=== PATIENT | male | born 1960 | race Caucasian/White ===

== ENCOUNTER 2019-03-29 17:06 | Emergency (ER) | payer OTHER ==
--- NOTE | 2019-03-29 19:14 | ED Physician Documentation ---
PD HPI LOWER EXT INJURY - Stated complaint Stated Complaint: RT LEG PX - Chief complaint Chief Complaint: Ext Problem - History obtained from History obtained from: Patient - History of Present Illness PD HPI LOW EXT INJURY LOCATION: Right (58-year-old gentleman with history of DVT PE, on Eliquis. Flu a couple of weeks ago, and just prior to that flight hit his knee on concrete and has persistent tightness and pain in the knee and calf.) Review of Systems Constitutional: reports: Reviewed and negative Cardiac: reports: Reviewed and negative Respiratory: reports: Reviewed and negative PD PAST MEDICAL HISTORY - Allergies Allergies/Adverse Reactions: Allergies Allergy/AdvReac Type Severity Reaction Status Date / Time No Known Drug Allergies Allergy Verified 03/29/19 17:26 PD ED PE NORMAL - Vitals Vital signs reviewed: Yes - General General: Alert and oriented X 3, No acute distress - Extremities Extremities: Other (There is a tiny effusion of the right knee, full range of motion and no bony tenderness. Mild calf tenderness without asymmetry.) - Neuro Neuro: Alert and oriented X 3, Normal speech Results - Vitals Vitals: Vital Signs - 24 hr 03/29/19 17:21 Temperature 36.9 C Heart Rate 73 Respiratory 16 Rate Blood Pressure 141/92 H O2 Saturation 96 Oxygen O2 Source Room air - Rads (name of study) Right lower extremity DVT sonogram Radiology: EMP read contemporaneously (No evidence of DVT) PD MEDICAL DECISION MAKING - ED course ED course: 58-year-old gentleman with history of DVT presents with concern for same, has a tiny effusion no bony tenderness and no limited range of motion. No evidence of DVT on ultrasound. Departure - Departure Disposition: 01 Home, Self Care Clinical Impression: Right leg pain Contusion of right knee Qualifiers: Encounter type: initial encounter Qualified Code(s): S80.01XA - Contusion of right knee, initial encounter Condition: Good Record reviewed to determine appropriate education?: Yes Instructions: ED Contusion Lower Ext Comments: No reason that he cannot do physical therapy tomorrow, return for new or worsening symptoms, follow-up with your doctor as needed for persistent issues.
[2019-03-29 19:22] VITALS: BP 144/96
--- NOTE | 2019-03-29 19:31 | Ultrasound Report ---
Reason: Leg pain Procedure Date: 03/29/2019 Accession Number: [id number] / [id number] Procedure: US - Duplex Ext Veins Right CPT Code: Final Report FULL RESULT: EXAM: RIGHT LOWER EXTREMITY VENOUS ULTRASOUND EXAM DATE: 03/29/2019 07:00 PM. CLINICAL HISTORY: Leg pain. Shortness of breath. On blood thinners. History of long flight and history of trauma to right knee 3 weeks ago. COMPARISON: None. TECHNIQUE: Real-time sonographic vascular imaging was performed by the lead net software developer through the lower extremity utilizing both color-flow and Doppler spectral analysis. Multiple tax representative static images were saved for review. FINDINGS: Common Femoral Vein (CFV): Normal. CFV-GSV Junction: Normal. Profunda Femoral Vein (PFV): Normal. Femoral Vein (FV) Prox: Normal. Femoral Vein (FV) Mid: Normal. Femoral Vein (FV) Dist: Normal. Popliteal Vein: Normal. Posterior Tibial Veins: Not well seen. Peroneal Veins: Not well seen. IMPRESSION: No evidence for deep venous thrombosis. RADIA
== END 2019-03-29 19:26 | disposition home or self-care (01) ==
LOC: ED 17:06
DX: M79.661 Pain in right lower leg (principal); S80.01XA Contusion of right knee, initial encounter; W22.8XXA Striking against or struck by other objects, initial encounter
CPT/HCPCS: 99283; 99284

== ENCOUNTER 2019-10-13 12:43 | Outpatient (CLI) | payer OTHER ==
--- NOTE | 2019-10-15 09:03 | MRI Report ---
PROCEDURE: Knee RT W/O INDICATIONS: RIGHT KNEE PAIN TECHNIQUE: Noncontrast sagittal PD fast spin echo and T2 fast spin echo with fat saturation, sagittal 3-D gradie nt sequence with fat saturation; coronal T1 spin echo and PD fast spin echo with fat saturation, and axial PD fast spin echo with fat saturation through the knee. COMPARISON: None. FINDINGS: Image quality: Excellent. Menisci: Macerated medial tear involving the posterior horn and body with partial extrusion. Marked truncation of the lateral meniscal body, with intrasubstance signal change in keeping with tea r with radial component. Cruciate ligaments: Anterior cruciate ligament appears mildly thickened, with intrasubstance T2 hyperintense appearance r aising the possibility of early mucoid degeneration, although largely intact. Posterior cruciate ligament appears intact. Medial structures: The medial collateral ligament appears intact. The semimembranosus tendon appears intact. Visualized portions of the pes anserinus tendons appear normal. No abnormal bursal fluid. Lateral structures: There is mild thickening and internal signal change of the proximal lateral collateral ligament, whic h is technically age indeterminate. Biceps femoris tendon appears intact. Iliotibial band within norm al limits. Popliteus tendon within normal limits. Anterior structures: Mild patellar tendinopathy, with prepatellar and superficial infrapatellar edema. The quadriceps tendon appears intact. Medial and lateral patellofemoral ligaments appear grossly intact. Patellar alignment is normal. Hoffa's fat pad unremarkable. Bones and cartilage: No bone marrow contusions or fractures. Prominent fat signal intensity is seen within the suprapatell ar recess adjacent to the superior pole of the patella for example image 14/501, measuring 2.5 x 1.3 cm raising the possibility of intra-articular lipoma or atypical lipoma arborescens. Within the medial compartment, cartilage appears intact Within the lateral compartment, full-thickness central tibial cartilage loss. The femoral cartilage a ppears grossly intact. Within the patellofemoral compartment, diffuse surface fraying of the patellar cartilage. The femoral trochlear cartilage appears intact Joint space: Small joint effusion. Cole's cyst measuring 6 cm in the cephalocaudad dimension. No specific evidence of loose body identi fied. IMPRESSION: Macerated medial tear involving the posterior horn and body with partial extrusion Lateral meniscal tear involving the body. Possible early mucoid degeneration of the ACL. Please correlate to exam findings Prominent masslike fat signal intensity within the suprapatellar recess, which could be incidental al though intra-articular lipoma or much less likely atypical lipoma arborescens in the differential. Degenerative joint disease most pronounced within the lateral compartment. Large Cole's cyst Mild patellar tendinopathy with adjacent fluid and edema. Reviewed by: Mane Headley MD on 10/15/2019 9:01 AM PDT Approved by: Mane Headley MD on 10/15/2019 9:01 AM PDT Station ID: [id number]
== END 2019-10-13 12:44 | disposition home or self-care (01) ==
LOC: DI 12:43
PROVIDERS: ATTEND Family Medicine
DX: S83.241A Other tear of medial meniscus, current injury, right knee, initial encounter (principal); S83.281A Other tear of lateral meniscus, current injury, right knee, initial encounter; M17.11 Unilateral primary osteoarthritis, right knee; M71.21 Synovial cyst of popliteal space [Baker], right knee; M67.961 Unspecified disorder of synovium and tendon, right lower leg

== ENCOUNTER 2020-02-04 12:39 | Outpatient (CLI) | payer OTHER ==
--- NOTE | 2020-02-18 09:56 | MRI Report ---
PROCEDURE: Lumbar Spine W/O INDICATIONS: LOW BACK PAIN TECHNIQUE: Noncontrast sagittal T1 spin echo and T2 fast echo, sagittal STIR, axial T1 and T2 fast spin echo thr ough the lumbar spine. In cases with scoliosis, additional coronal T2 fast spin echo may be performe d. COMPARISON: None. FINDINGS: Image quality: Excellent. Alignment and Curvature: No plain films are available for comparison. Thus, for numbering purposes, 5 lumbar type vertebral bodies will be presumed for the current report. This should be confirmed with plain film correlation prior to any lumbar spinal intervention. There is loss of normal lumbar lordo sis. There is mild, grade 1 retrolisthesis of L2 on L3, L3 on L4, L4 on L5, and L5 on S1. Bone Marrow: Marrow is of normal overall signal. No acute vertebral body compression fractures. Th ere is moderate reactive signal within the endplates adjacent to the L3-L4, L4-L5, and L5-S1 interver tebral discs. Mild reactive signal within the end plates adjacent to the T11-T12, T12-L1, and L1-L2 i ntervertebral discs. Spinal Cord: Conus medullaris terminates at the lower T12 level. Visualized cord demonstrates darren l signal and size. Paraspinous Soft Tissues: No paravertebral masses. T12-L1: Moderate disc desiccation. Mild disc height loss. Mild diffuse disc bulge. Mild bilateral fa cet hypertrophy. Mild canal stenosis. Mild bilateral foraminal stenosis. L1-L2: Moderate disc height loss and desiccation. Mild diffuse disc bulge. Mild facet and ligament flavum hypertrophy. Mild epidural lipomatosis. Mild canal stenosis. Mild bilateral foraminal stenosi s. L2-L3: Severe disc height loss and desiccation. Mild diffuse disc bulge. Mild facet and ligament f lavum hypertrophy. Mild epidural lipomatosis. Mild canal stenosis. Mild bilateral foraminal stenosis. L3-L4: Moderate disc height loss and desiccation. Mild diffuse disc bulge. Mild facet and ligament flavum hypertrophy. Mild epidural lipomatosis. Mild canal stenosis. Moderate subarticular foraminal s tenosis bilaterally. L4-L5: Moderate disc height loss and desiccation. Mild diffuse disc bulge. Mild facet and ligament flavum hypertrophy. Mild epidural lipomatosis. Mild canal stenosis. Moderate left and severe right fo raminal stenosis. Right L4 nerve root compression. L5-S1: Moderate disc height loss and desiccation. Mild diffuse disc bulge. Mild facet and ligament flavum hypertrophy. Mild canal stenosis. Severe right and moderate left subarticular foraminal stenos is. Right L5 nerve root compression. IMPRESSION: 1. Multilevel degenerative disc and facet disease, in addition to epidural lipomatosis and ligamentum flavum hypertrophy. 2. Mild multilevel canal stenoses. 3. Multilevel foraminal stenoses, worst at L4-L5 and L5-S1 where there is associated intraforaminal n erve root compression. Recommend correlation with clinical symptoms to ascertain relevance of these f indings. Reviewed by: Imer Gregorio MD on 02/18/2020 9:55 AM PST Approved by: Imer Gregorio MD on 02/18/2020 9:55 AM PST Station ID: [id number]
== END 2020-02-04 12:40 | disposition home or self-care (01) ==
LOC: DI 12:39
PROVIDERS: ATTEND Family Medicine
DX: M51.37 Other intervertebral disc degeneration, lumbosacral region (principal); M48.07 Spinal stenosis, lumbosacral region
CPT/HCPCS: 72148

== ENCOUNTER 2021-04-23 15:21 | Outpatient (CLI) | payer OTHER ==
[2021-04-23 16:30] VITALS: BP 140/90
--- NOTE | 2021-04-23 16:30 | SLEEP CARE CONSULTATION ---
Information from patient questionnaire entered by Yary Jacob MA. I have reviewed and concur with the information entered by Yary Jacob MA. This document represents the service I personally performed and the decisions made by , Helene Correa ARNP. History of Present Illness Service Date and Time: 04/23/2021 1521 Reason for Visit: New patient (ONSET 2013, STUDY 3 YEARS AGO [place]), Previously diagnosed sleep apnea, sleep apnea on CPAP therapy Chief Complaint: reports: Insomnia, Unrefreshed sleep, Snoring, Fatigue, Frequent awakenings at night Date of Onset: 5 YEARS Usual bedtime: 10:00 - 1200 PM Time it takes to fall asleep: 1 - 2 HOUR Snores at night: Yes Observed to quit breathing while asleep: Yes Sleeps alone due to snoring: No Number of times waking at night: 2 Reasons for waking at night: reports: Snoring, Bathroom Toss, Turn, or Twitch while sleeping: Yes Recalls having dreams: Yes Usually gets out of bed at: 10 AM - 12 AM Feels refreshed in the morning: No Morning headache: Yes Sleepy or fatigued during the day: Yes Ever fallen asleep while driving: No Takes day naps: No Dreams during day naps: Yes Prior sleep studies: Yes Year and Where: 05-02-2018 at [facility] Type of Sleep Study: Home sleep study Additional HPI information: ALBERTO ROBERT was previously diagnosed to have mild, AHI 10.7, obstructive sleep apnea-hypopnea syndrome and comes in today to establish care for CPAP therapy. Patient last study done in 2018 in [place] at the [facility]. - Parasomnia Symptoms Ever been unable to move upon waking from sleep: No Walks in sleep: No Talks in sleep: Yes Ever acted out dreams in sleep: Yes Ever felt weak in the knees when startled or emotional: Yes Bothered by creepy, crawly, restless sensations in legs: No Problems with memory or concentration: Yes CPAP Compliance Data - Data Reviewed with Patient Average duration of nightly device use: 4 hours 53 minutes Compliance rate %: 58 Current pressure setting (cmH2O): 5-15 Average residual AHI: 2.5 Central apnea: 1.1 Obstructive apnea: 0.5 Compliance data discussion: He has been getting supplies on his own. He is using a ResCytoPherx machine. He is using a full face mask, size large, ResMed AirTouch F20. He does not have a backup mask at this time. He last changed his mask cushion 4 months ago. Subjective Patient concerns: reports: air blowing in eyes, condensation in mask/hose (sometimes in mask, not hose; no issues with this), dry mouth, nose, throat (sometimes). denies: aerophagia, mask discomfort (when needs a new mask), mask leak noise, nasal congestion, epistaxis, other Observed to snore while using device: No Current pressure setting perceived as: comfortable On therapy, patient: reports: other (He does not feel more rested or feels he sleep better with CPAP; but he knows it helps him sleep). denies: drowsiness while driving Initial [place] Sleepiness Scale score: 8 (2021) Past Medical History Past Medical History: reports: Hypertension, Stroke (Jan 2018), Arthritis (lower back, jacob knees, jacob hands), Gout, Hypothyroidism, Anxiety, Depression, Mood disorder (part of depression, PTSD), GERD (hiatal hernia repair, esophageal wrap/Tima) Social History The patient's occupation is a RE. Patient is and lives in [place]. Have you smoked in the past 12 months: No Quit date: 1994 Alcohol use: No Caffeine use: Yes Caffeine amount and frequency: 3 X DAILY Family History Family history of sleep disordered breathing: No Allergies and Home Medications Known drug allergies: No Drug allergies reviewed: Yes (Tetanus vaccine) Home medication list reviewed: Yes Allergy and home medication list: Eliquis Bupropion Synthroid Tamsulosin Meloxicam Lamotrigine Hydroxyzine Carvedilol Losartin Omeprazole Atorvastatin Eszopiclone Loratidine Trazadone Review of Systems Cardiovascular: reports: high blood pressure Respiratory: reports: shortness of breath Urinary: reports: frequency, urgency Neurological: reports: headaches, disorientation, gait or balance problems Psychiatric: reports: anxiety, depression, mood disorder Ear/Nose/Throat: reports: nasal congestion, sinus problems, injury to nose, tonsillectomy, wisdom teeth removed Endocrine: reports: thyroid disease, history of goiter, sluggishness, increased urination, unexplained weakness Musculoskeletal: reports: joint pain Physical Exam Vital signs obtained and entered by: Markos JACOB CMA AAMA Blood Pressure: 140/90 (right wrist) Heart Rate: 62 O2 Saturation: 95 (cloth mask) Height: 6 ft 4 in Weight: 238 lb (with clothes) Body Mass Index: 29.0 BMI Classification: Overweight Heart: regular rate and rhythm Lungs: clear bilaterally Impression and Plan 1. Obstructive Sleep Apnea-Hypopnea Syndrome, mild, with fair treatment compliance and good apnea control. Patient states he was sent over to get a sleep study completed because he is retiring from the and the [place] states he needs another sleep study to complete his separation. He has been buying his own supplies but he wants to wait until after the sleep study to be able to get more supplies. He has a new mask on his way right now. I encouraged him to change his mask as soon as he is able because he has been using the same one for 4 months. I will order the sleep study and the HST it would probably be adequate. I will follow up with patient in the office after the sleep study is completed. Patient's apnea severity and rationale for treatment to reduce apnea, improve sleep quality and reduce cardiovascular and cerebrovascular events was reviewed. I also reviewed the benefit of consistent device use of CPAP for hypertension, cerebrovascular disease, gastric reflux, and depression/anxiety. Patient was encouraged to lose weight for their overall health and to reduce apneas. * Continue auto CPAP pressure at 5-15 cmH2O * Polysomnography/HST to verify diagnosis * Notify me if snoring with mask or feeling that the pressure is too much or too little * Attempt to lose weight * Call this office if any problems using CPAP * Return for follow up after the sleep study is completed, or sooner if concerns arise Counseling Topics: Spare mask, Weight loss health impact Visit Type: In Office Time Spent with Patient (minutes): 31 Provider Statement: I spent 100% of the Face to Face Visit with the patient with greater than 50% spent counseling the patient and coordination of care.
== END 2021-04-23 15:22 | disposition home or self-care (01) ==
LOC: SC 15:21
PROVIDERS: ATTEND Nurse Practitioner Family
DX: G47.33 Obstructive sleep apnea (adult) (pediatric) (principal)
CPT/HCPCS: 99203; 99212

== ENCOUNTER 2021-04-29 14:33 | Outpatient (CLI) | payer OTHER | END 2021-04-29 14:34 | disposition home or self-care (01) | LOC: SC 14:33 | PROVIDERS: ATTEND Nurse Practitioner Family | DX: G47.33 Obstructive sleep apnea (adult) (pediatric) (principal); R09.02 Hypoxemia | CPT/HCPCS: 95806 ==

== ENCOUNTER 2021-05-14 15:25 | Outpatient (CLI) | payer OTHER ==
[2021-05-14 16:12] VITALS: BP 124/87
--- NOTE | 2021-05-14 16:12 | SLEEP CARE CONSULTATION ---
Information from patient questionnaire entered by Yary Jacob MA. I have reviewed and concur with the information entered by Yary Jacob MA. This document represents the service I personally performed and the decisions made by , Helene Correa ARNP. History of Present Illness Service Date and Time: 05/14/2021 1525 Initial [place] Sleepiness Scale score: 8 (2021) Current [place] Sleepiness Scale score: 13 Additional HPI information: ALBERTO ROBERT returns for follow up and results of the recently performed home sleep study. I explained the pathophysiology behind obstructive sleep apnea. We then spent quite a bit of time discussing different treatment options. For mild obstructive sleep apnea, surgery and oral appliance are alternatives to nasal CPAP therapy but in moderate or severe cases, nasal CPAP is the most effective and reliable treatment. I reviewed the impact of weight changes on sleep apnea and strongly recommended losing weight. Patient is to continue with the nasal CPAP therapy with nasal autoCPAP set at 5- 15 cmH20. Patient counseled not drink alcohol less than 4 hours before bedtime as it can increase snoring and apnea. Patient was cautioned about risks of drowsy driving until sleepiness symptoms resolve. Sleep Study - Results Prior sleep studies: Yes Year and Where: 05-02-2018 at [facility] Polysomnography/Home Sleep Study results: Physician Impression: The quality of the study is good. The length of the study is adequate (> 240 minutes). Please also see the tabulated and graphic data. 1. Obstructive Sleep Apnea-Hypopnea (ICD-10 G47.33), moderate, with an AHI of 22.8/hr and mary SaO2 of 82%. During the study, the patient had 237 apneas (237 obstructive, 0 central, 0 mixed) and 22 hypopneas. The longest episode lasted 108.5 seconds. The respiratory events occurred more frequently during supine sleep (supine AHI was 31.5 and non-supine, 16.73). 2. Hypoxemia (ICD-10 R09.02), mild, with the lowest oxygen saturation of 82 % and 245.1 minutes with SaO2 under 90%. Baseline oxygen saturation was normal (Average oxygen saturation was 91%). - Discussion Sleep Study discussion: Patient showed 100% compliance in last 14 days with 14/14 day use of his CPAP. He is using his machine an average of 9 hours 6 minutes. His pressure is set at 5-15 cmH2O and his average residual AHI is 2.5. He is using a ResMed AirFit F20 full face mask. Allergies and Home Medications Home medication list reviewed: Yes (no changes) Review of Systems Review of systems same as previous: Yes (no changes) Physical Exam Vital signs obtained and entered by: CLEMENCIA Jacob Blood Pressure: 124/87 Cuff size: wrist Heart Rate: 86 O2 Saturation: 96 Height: 6 ft 4 in Weight: 241 lb Body Mass Index: 29.3 BMI Classification: Overweight Impression and Plan 1. Obstructive Sleep Apnea-Hypopnea Syndrome, moderate, with lowest oxygen saturation of 82%. Patient will be continued on nasal autoCPAP therapy with pressure set at 5-15 cmH2O. Compliance guidelines also reviewed. Patient is very happy with getting update of his supplies. He is using a ResMed Airfit F20 mask. He will follow up again with us in 1 year or sooner if he has any issues. Patient was encouraged to lose weight for their overall health and to reduce apneas. 2. Hypoxemia, mild, with the lowest oxygen saturation of 82 % and 245.1 minutes with SaO2 under 90%. His baseline oxygen saturation was normal with an average oxygen saturation of 91%. * Continue auto CPAP pressure at 5-15 cmH2O * Notify me if snoring with mask or feeling that the pressure is too much or too little * Attempt to lose weight * Call this office if any problems using CPAP * Return for follow up in 1 year, or sooner if concerns arise Counseling Topics: Spare mask, Weight loss health impact Visit Type: In Office Time Spent with Patient (minutes): 16 Provider Statement: I spent 100% of the Face to Face Visit with the patient with greater than 50% spent counseling the patient and coordination of care.
== END 2021-05-14 15:26 | disposition home or self-care (01) ==
LOC: SC 15:25
PROVIDERS: ATTEND Nurse Practitioner Family
DX: G47.33 Obstructive sleep apnea (adult) (pediatric) (principal); R09.02 Hypoxemia
CPT/HCPCS: 99212

== ENCOUNTER 2022-04-23 12:59 | Outpatient (CLI) | payer OTHER ==
[2022-04-23 13:29] VITALS: BP 132/86
--- NOTE | 2022-04-23 13:29 | SLEEP CARE CONSULTATION ---
Information from patient questionnaire entered by Chioma Kessler. I have reviewed and concur with the information entered by Chioma Kessler. This document represents the service I personally performed and the decisions made by me, Helene Correa ARNP. History of Present Illness Service Date and Time: 04/23/2022 1259 Previous diagnosis: Moderate, Obstructive Sleep Apnea-Hypopnea Syndrome AHI: 22.8 Reason for follow up: other (11 MONTH F/U ) Equipment type: CPAP (RESMED NEED SD CARD PT NOT IN SYSTEM) Equipment obtained from: Other ([facility]; [facility] supplies) Mask style: Full face Mask brand: Resmed (Airfit F20) Backup mask available: Yes (old mask) Last cushion change: 9 month Prior sleep studies: Yes Year and Where: 05-02-2018 at [facility] Type of Sleep Study: Home sleep study HPI additional information: ALBERTO ROBERT was diagnosed to have moderate, AHI 22.8, obstructive sleep apnea- hypopnea syndrome and returned today for CPAP therapy 11 month follow-up. Sleep Study - Results Type of Sleep Study: Home sleep study Prior sleep studies: Yes Year and Where: 05-02-2018 at [facility] CPAP Compliance Data - Data Reviewed with Patient Average duration of nightly device use: 4 hours 2 mins Compliance rate %: 50 (30/30 days used) Current pressure setting (cmH2O): 5-15 Average residual AHI: 1.2 Central apnea: 0.4 Obstructive apnea: 0.2 Subjective Missed days of use due to: reports: mask issues (will take off when unable to tolerate air leaks from mask) Patient concerns: reports: mask discomfort (has not changed cushion in 9-10 months), air blowing in eyes, mask leak noise, dry mouth, nose, throat. denies: aerophagia, condensation in mask/hose, nasal congestion, epistaxis Observed to snore while using device: No Current pressure setting perceived as: comfortable On therapy, patient: reports: sleeping better, awakening more refreshed, being more awake and alert during the day, more rested overall. denies: drowsiness while driving Initial [place] Sleepiness Scale score: 8 (2021) Current [place] Sleepiness Scale score: 5 (04/23/22) Allergies and Home Medications Drug allergies reviewed: Yes (NKDA) Home medication list reviewed: Yes (new psych medications, not sure of names) Review of Systems Review of systems same as previous: Yes (no changes) Physical Exam Vital signs obtained and entered by: CHIOMA Del Valle MA Blood Pressure: 132/86 (LEFT ARM) Cuff size: regular Heart Rate: 50 O2 Saturation: 96 Height: 6 ft 4 in Weight: 244 lb 9.6 oz Body Mass Index: 29.7 BMI Classification: Overweight Impression and Plan 1. Obstructive Sleep Apnea-Hypopnea Syndrome, moderate, with fair treatment compliance and good apnea control. On CPAP therapy, the patient has better sleep quality and is more rested overall. Patient was told by the OR that he is due to update his machine. Thus, the CPAP will be updated. The new CPAPs also have a better humidity system which could assist control of patients dryness symptoms. He was also advised to change the mask cushion more often to reduce mask leaks. He voiced understanding. A DWO prescription will be made. Compliance guidelines for new device and follow up discussed. Patient's apnea severity and rationale for treatment to reduce apnea, improve sleep quality and reduce cardiovascular and cerebrovascular events was reviewed. I also reviewed the benefit of consistent device use of CPAP for hypertension, cerebrovascular disease, gastric reflux, depression, anxiety and PTSD. 2. Overweight, unspecified. Currently patients BMI is 29.7. Obesity increases the risk of apnea, CPAP pressure requirements and overall health risks especially cardiovascular and diabetes. Thus patient is advised to continue to try to lose weight. * Change auto CPAP pressure to 5-10 cmH2O * Update supplies * Update machine * Notify me if snoring with mask or feeling that the pressure is too much or too little * Attempt to lose weight * Call this office if any problems using CPAP * Return for follow up one month after obtaining new device, or sooner if concerns arise Counseling Topics: Spare mask, Weight loss health impact Visit Type: In Office Time Spent with Patient (minutes): 22 Provider Statement: I spent 100% of the Face to Face Visit with the patient with greater than 50% spent counseling the patient and coordination of care.
== END 2022-04-23 13:00 | disposition home or self-care (01) ==
LOC: SC 12:59
PROVIDERS: ATTEND Nurse Practitioner Family
DX: G47.33 Obstructive sleep apnea (adult) (pediatric) (principal); E66.3 Overweight; Z68.29 Body mass index [BMI] 29.0-29.9, adult
CPT/HCPCS: 99212; 99213